=== PATIENT | female | born 1980 | race African-American/Black ===

== ENCOUNTER 2016-04-04 21:09 | Emergency (ER) | payer OTHER ==
[~2016-04-04] VITALS: Ht 162.6 cm; Wt 47.0 kg
[2016-04-04 21:13] VITALS: Ht 162.6 cm; Wt 47.0 kg
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
[2016-04-04] MEDS ORDERED: IBUP-1542 PO (23:42)
--- NOTE | 2016-04-05 00:29 | RADRPT ---
PROCEDURE: Chest. CLINICAL INDICATION: Chest pain. TECHNIQUE: Single frontal view of the chest was obtained. COMPARISON: None. FINDINGS: The cardiac silhouette is within normal limits. The aortic arch is unremarkable. There is no focal consolidation, vascular congestion or pleural effusion. There is no pneumothorax. IMPRESSION: No evidence for active cardiopulmonary disease. .Bridger Vazquez MD, MD Date Time Electronically viewed and signed by .Bridger Vazquez MD, on 04/05/2016 00:29 .T/
== END 2016-04-05 00:14 | disposition home or self-care (01) ==
LOC: E/R 21:09
DX: S40.012A Contusion of left shoulder, initial encounter (principal); S29.9XXA Unspecified injury of thorax, initial encounter; V49.40XA Driver injured in collision with unspecified motor vehicles in traffic accident, initial encounter
CPT/HCPCS: 71010; Z7502